=== PATIENT | female | born 1970 | race Caucasian/White ===

== ENCOUNTER → 2017-02-07 | Outpatient (CLI) | payer OTHER ==
[~2017-02-07] MED LIST: HYOS0.129 PO; IRONTAB5 PO; TAB-TAB PO
[2017-02-07 10:12] LABS: HEMATOCRIT 37.2 % (35.0-46.0); MEAN CORPUSCULAR HEMOGLOBIN 32.6 PG (27.0-34.0); MEAN CORPUSCULAR HGB CONC 34.4 % (32.0-36.0); PLATELET COUNT 253 TH/MM3 (150-450); RED BLOOD COUNT 3.92 MIL/MM3 (4.00-5.30); RED CELL DISTRIBUTION WIDTH 13.1 % (11.6-17.2); REVIEW FLAG FINAL; WHITE BLOOD COUNT 6.9 TH/MM3 (4.0-11.0)
== END ==
LOC: CPRE 09:35
PROVIDERS: ATTEND Obstetrics & Gynecology
DX: Z01.812 Encounter for preprocedural laboratory examination (principal); N81.6 Rectocele
CPT/HCPCS: 36415; 85027

== ENCOUNTER → 2017-02-11 | Day surgery (SDC) | payer OTHER ==
[~2017-02-11] VITALS: Ht 175.3 cm; Wt 78.2 kg
[~2017-02-11] MED LIST changes: +*HYDROmorphone PF 1 MG VIAL PERIprocedural Use ONLY ONE; +*MEPERIDINE 25 MG INJ VIAL PERIprocedural Use ONLY ONE; +APREPITANT 40 MG CAP ONE; +CHLORHEXIDINE GLUCONATE 2 % 1 PACK (2 CLOTHS) TOPICAL PRN; +DEXAMETHASONE SOD PHOS 4 MG/ML VIAL ONE; +FAMOTIDINE 20 MG/2 ML VIAL ONE; +HYDROmorphone HCL PF 1 MG/ML VIAL IV PRN; -HYOS0.129 PO; +INSULIN HUMAN REGULAR 1,000 UNITS/10 ML VIAL SQ PRN; -IRONTAB5 PO; +KETOROLAC TROMETHAMINE 30 MG/ML (IVP) VIAL IV PUSH ONE; +LACTATED RINGER'S 1000 ML IV PRN; +METOPROLOL TARTRATE 25 MG TAB PO PRN; +MIDAZOLAM HCL 2 MG/2 ML VIAL ONE; +ONDANSETRON HCL 4 MG/2 ML VIAL IV PUSH ONE; +ONDANSETRON HCL 4 MG/2 ML VIAL IV PUSH PRN; +ONDANSETRON HCL 4 MG/2 ML VIAL ONE; +POVIDONE IODINE 5% (ANTISEPSIS KIT) 4 APPLICATIONS EACH NARE PRN; +PROPOFOL 200 MG/20 ML AMP IV ONE; +SODIUM CHLORID 0.9% 500 ML IV PRN; +SODIUM CHLORIDE 0.9% INJ 100 ML ONE; +SUGAMMADEX SODIUM 200 MG/2 ML VIAL IV PUSH ONE; -TAB-TAB PO; +ceFAZolin INJ 1,000 MG VIAL ONE; +fentaNYL CITRATE 250 MCG/5 ML AMP ONE; +oxyCODONE/ACETAMINOPHEN 5 MG/325 MG TAB PO PRN
[2017-02-11 08:31] VITALS: BP 109/68; PULSE 66; RESP 16; TEMP 99; O2SAT 99
[2017-02-11 12:58] VITALS: PULSE 84; RESP 18; TEMP 98.9; O2SAT 100
[2017-02-11 13:28] VITALS: BP 101/60
--- NOTE | 2017-02-11 13:32 | MP ---
cc: ALLEN MA DATE OF SURGERY 02/11/2017 PREOPERATIVE DIAGNOSIS Rectocele. POSTOPERATIVE DIAGNOSIS Rectocele. PROCEDURE posterior repair. SURGEON MD Francesca ANESTHESIA General. ESTIMATED BLOOD LOSS 50 cc. COMPLICATIONS None. FINDINGS The patient had a moderate sized rectocele. There is no significant cystocele, enterocele or uterine prolapse. DESCRIPTION OF PROCEDURE The patient was brought to the operating room and following general anesthesia was placed in the dorsal lithotomy position. Her vagina and perineum were prepped and draped. A midline posterior vaginal incision was made to a point above the rectocele. The underlying fascia was dissected off of the vaginal mucosa sharply and then reapproximated in the midline with a series of interrupted #2-0 Vicryl stitches. This effectively reduced the rectocele. We then did a small trimming of the vaginal mucosa and reapproximated the mucosa with a running locking #2-0 Vicryl stitch. The small perineal incision was closed as per second-degree episiotomy. The vagina was irrigated and good hemostasis was noted along the suture line. The patient was then taken to the recovery room in good condition with all counts correct. She will be discharged home when stable and alert to follow up in one week in our office. Discharge medication is Percocet. She was given instructions on physical activity and instructed to resume a regular diet as tolerated. Allen Ma MD TGS/SSB /11:15 AM /1:30 PM
== END | disposition home or self-care (01) ==
LOC: HSDC 07:50
PROVIDERS: ATTEND Obstetrics & Gynecology
DX: N81.6 Rectocele (principal); K58.9 Irritable bowel syndrome, unspecified; Z88.5 Allergy status to narcotic agent; Z87.891 Personal history of nicotine dependence; Z86.2 Personal history of diseases of the blood and blood-forming organs and certain disorders involving the immune mechanism
CPT/HCPCS: 57250; 86850; 86900; 86901; 88302; J0690; J1100; J1170; J1885; J2175; J2250; J2405; J3010; J7120; J8501